=== PATIENT | female | born 1965 | race Two or more races ===

== ENCOUNTER → 2017-10-07 | Outpatient (CLI) | payer OTHER ==
[~2017-10-07] VITALS: Ht 152.4 cm; Wt 64.4 kg
[~2017-10-07] MED LIST: CALCIONATE115 MG/5 M; DIPROLENE AF 0.50 GM TP; FOSAMAX10 MG; FOSAMAX10 MG PO; LOPROX 0.77% TP; MAXITROL EYE DRO5 ML OP; PENLAC6.6 ML TOP; PENLAC6.6 ML TP; PRILOSEC20 MG; PRILOSEC20 MG PO; PRILOSEC40 MG PO; VISTARIL25 MG PO; ZANTAC300 MG PO; [UNRECOGNIZED DRUG - OTHER] TP
== END | disposition home or self-care (01) ==
LOC: PPHC 12:35
DX: Z00.00 Encounter for general adult medical examination without abnormal findings (principal)

== ENCOUNTER → 2017-10-13 06:14 | Outpatient (CLI) | payer OTHER | END | disposition home or self-care (01) | LOC: LAB 06:14 | DX: D64.89 Other specified anemias (principal); R42 Dizziness and giddiness; E78.4 Other hyperlipidemia ==

== ENCOUNTER → 2017-11-03 | Outpatient (CLI) | payer OTHER ==
[~2017-11-03] VITALS: Ht 152.4 cm; Wt 64.4 kg
== END | disposition home or self-care (01) ==
LOC: PPHC 12:44
DX: D72.818 Other decreased white blood cell count (principal); D50.9 Iron deficiency anemia, unspecified

== ENCOUNTER → 2017-11-18 | Emergency (ER) | payer OTHER | END | disposition left against medical advice (07) | LOC: ER 11:18 | DX: Z53.20 Procedure and treatment not carried out because of patient's decision for unspecified reasons (principal) ==

== ENCOUNTER → 2017-11-30 | Outpatient (CLI) | payer OTHER | END | disposition home or self-care (01) | LOC: LAB 12:17 | DX: D72.819 Decreased white blood cell count, unspecified (principal) ==

== ENCOUNTER → 2017-12-07 | Outpatient (CLI) | payer OTHER | END | disposition home or self-care (01) | LOC: PPHC 11:57 | DX: Z00.00 Encounter for general adult medical examination without abnormal findings (principal) ==

== ENCOUNTER 2017-12-18 16:49 | Emergency (ER) | payer OTHER ==
[~2017-12-18] VITALS: Ht 154.9 cm; Wt 64.4 kg
[2017-12-18] MEDS ORDERED: VITAMIN E100 UNI4 (16:59)
== END 2017-12-18 18:03 | disposition home or self-care (01) ==
LOC: ER 16:49
DX: S93.492A Sprain of other ligament of left ankle, initial encounter (principal); X50.1XXA Overexertion from prolonged static or awkward postures, initial encounter; Y93.01 Activity, walking, marching and hiking; Y92.59 Other trade areas as the place of occurrence of the external cause; Y99.8 Other external cause status

== ENCOUNTER → 2018-03-28 | Outpatient (CLI) | payer OTHER ==
[~2018-03-28] MED LIST changes: +VITAMIN E100 UNI4
== END | disposition home or self-care (01) ==
LOC: LAB 08:44
DX: Z11.3 Encounter for screening for infections with a predominantly sexual mode of transmission (principal); D69.6 Thrombocytopenia, unspecified

== ENCOUNTER → 2018-05-06 | Outpatient (CLI) | payer OTHER | END | disposition home or self-care (01) | LOC: MAMO-SONO 07:45 | DX: Z12.31 Encounter for screening mammogram for malignant neoplasm of breast (principal) ==

== ENCOUNTER 2018-11-02 06:11 | Outpatient (CLI) | payer OTHER | END 2018-11-02 06:18 | disposition home or self-care (01) | LOC: LAB 06:11 | DX: Z00.00 Encounter for general adult medical examination without abnormal findings (principal); E78.4 Other hyperlipidemia; R42 Dizziness and giddiness ==

== ENCOUNTER → 2019-05-12 | Outpatient (CLI) | payer OTHER | END | disposition home or self-care (01) | LOC: MAMO-SONO 12:10 | DX: Z12.31 Encounter for screening mammogram for malignant neoplasm of breast (principal); Z87.898 Personal history of other specified conditions; Z12.39 Encounter for other screening for malignant neoplasm of breast ==

== ENCOUNTER → 2019-05-23 | Outpatient (CLI) | payer OTHER | END | disposition home or self-care (01) | LOC: NUCLEAR 12:03 | DX: M81.0 Age-related osteoporosis without current pathological fracture (principal) ==

== ENCOUNTER 2019-08-19 07:10 | Outpatient (CLI) | payer OTHER | END 2019-08-19 07:23 | disposition home or self-care (01) | LOC: LAB 07:10 | DX: E78.49 Other hyperlipidemia (principal); Z00.00 Encounter for general adult medical examination without abnormal findings; E55.9 Vitamin D deficiency, unspecified; R42 Dizziness and giddiness ==

== ENCOUNTER 2019-10-30 06:31 | Outpatient (CLI) | payer OTHER | END 2019-10-30 06:35 | disposition home or self-care (01) | LOC: LAB 06:31 | DX: D50.8 Other iron deficiency anemias (principal); Z00.00 Encounter for general adult medical examination without abnormal findings; Z13.6 Encounter for screening for cardiovascular disorders; Z12.11 Encounter for screening for malignant neoplasm of colon ==

== ENCOUNTER 2019-10-31 12:36 | Outpatient (CLI) | payer OTHER | END 2019-10-31 12:39 | disposition home or self-care (01) | LOC: LAB 12:36 | DX: D50.8 Other iron deficiency anemias (principal); Z00.00 Encounter for general adult medical examination without abnormal findings; Z13.6 Encounter for screening for cardiovascular disorders; Z12.11 Encounter for screening for malignant neoplasm of colon ==

== ENCOUNTER → 2019-11-15 12:41 | Outpatient (CLI) | payer OTHER | END | disposition home or self-care (01) | LOC: LAB 12:41 | DX: R13.19 Other dysphagia (principal); K21.9 Gastro-esophageal reflux disease without esophagitis ==

== ENCOUNTER 2019-12-22 15:52 | Emergency (ER) | payer OTHER ==
[~2019-12-22] VITALS: Ht 154.9 cm; Wt 63.0 kg
[2019-12-22] MEDS ORDERED: MULTI VITAMIN1 EACH (16:06)
== END 2019-12-22 16:51 | disposition home or self-care (01) ==
LOC: ER 15:52
DX: T78.1XXA Other adverse food reactions, not elsewhere classified, initial encounter (principal); R21 Rash and other nonspecific skin eruption

== ENCOUNTER 2020-01-19 09:37 | Outpatient (CLI) | payer OTHER ==
[~2020-01-19 09:37] MED LIST changes: +MULTI VITAMIN1 EACH
== END 2020-01-19 09:41 | disposition home or self-care (01) ==
LOC: LAB 09:37
DX: Z20.828 Contact with and (suspected) exposure to other viral communicable diseases (principal)

== ENCOUNTER 2020-05-10 08:14 | Outpatient (CLI) | payer OTHER | END 2020-05-10 08:22 | disposition home or self-care (01) | LOC: MAMO-SONO 08:14 | PROVIDERS: ATTEND General Practice | DX: Z12.31 Encounter for screening mammogram for malignant neoplasm of breast (principal) ==

== ENCOUNTER 2020-06-04 08:00 | Outpatient (CLI) | payer OTHER | END 2020-06-04 15:00 | disposition home or self-care (01) | LOC: PPH VACUNA 08:00 | DX: Z23 Encounter for immunization (principal) ==

== ENCOUNTER 2020-09-03 11:41 | Outpatient (CLI) | payer OTHER | END 2020-09-03 15:00 | disposition home or self-care (01) | LOC: PPH VACUNA 11:41 | DX: Z23 Encounter for immunization (principal) ==

== ENCOUNTER → 2020-11-18 06:07 | Outpatient (CLI) | payer OTHER | END | disposition home or self-care (01) | LOC: LAB 06:07 | PROVIDERS: ATTEND Specialist | DX: I10 Essential (primary) hypertension (principal); E78.49 Other hyperlipidemia; Z12.11 Encounter for screening for malignant neoplasm of colon; E03.8 Other specified hypothyroidism; E55.9 Vitamin D deficiency, unspecified ==

== ENCOUNTER 2021-05-23 12:27 | Outpatient (CLI) | payer OTHER | END 2021-05-23 12:44 | disposition home or self-care (01) | LOC: MAMO-SONO 12:27 | PROVIDERS: ATTEND Specialist | DX: N64.89 Other specified disorders of breast (principal); Z12.31 Encounter for screening mammogram for malignant neoplasm of breast; Z80.8 Family history of malignant neoplasm of other organs or systems ==

== ENCOUNTER → 2021-05-30 06:11 | Outpatient (CLI) | payer OTHER | END | disposition home or self-care (01) | LOC: LAB 06:11 | PROVIDERS: ATTEND Specialist | DX: E78.49 Other hyperlipidemia (principal) ==

== ENCOUNTER 2021-06-19 08:00 | Outpatient (CLI) | payer OTHER | END 2021-06-19 08:30 | disposition home or self-care (01) | LOC: PPH VACUNA 08:00 | PROVIDERS: ATTEND Emergency Medicine Pediatric Emergency Medicine | DX: Z23 Encounter for immunization (principal) ==

== ENCOUNTER 2021-09-15 11:28 | Emergency (ER) | payer OTHER ==
[~2021-09-15] VITALS: Ht 157.5 cm; Wt 62.1 kg
== END 2021-09-15 15:19 | disposition home or self-care (01) ==
LOC: ER 11:28
DX: B34.9 Viral infection, unspecified (principal); Z20.822 Contact with and (suspected) exposure to COVID-19

== ENCOUNTER → 2021-11-05 06:17 | Outpatient (CLI) | payer OTHER | END | disposition home or self-care (01) | LOC: LAB 06:17 | PROVIDERS: ATTEND Specialist | DX: E78.5 Hyperlipidemia, unspecified (principal); I10 Essential (primary) hypertension; E03.9 Hypothyroidism, unspecified; Z12.11 Encounter for screening for malignant neoplasm of colon; E55.9 Vitamin D deficiency, unspecified ==

== ENCOUNTER 2022-05-15 11:54 | Outpatient (CLI) | payer OTHER | END 2022-05-15 12:01 | disposition home or self-care (01) | LOC: MAMO-SONO 11:54 | PROVIDERS: ATTEND Specialist | DX: Z12.31 Encounter for screening mammogram for malignant neoplasm of breast (principal) ==

== ENCOUNTER 2022-05-18 06:14 | Outpatient (CLI) | payer OTHER | END 2022-05-18 06:15 | disposition home or self-care (01) | LOC: LAB 06:14 | PROVIDERS: ATTEND Specialist | DX: I10 Essential (primary) hypertension (principal); E78.5 Hyperlipidemia, unspecified ==

== ENCOUNTER 2022-06-02 12:30 | Outpatient (CLI) | payer OTHER | END 2022-06-02 12:32 | disposition home or self-care (01) | LOC: NUCLEAR 12:30 | PROVIDERS: ATTEND Specialist | DX: M81.0 Age-related osteoporosis without current pathological fracture (principal); Z91.013 Allergy to seafood ==

== ENCOUNTER 2022-06-03 10:55 | Outpatient (CLI) | payer OTHER | END 2022-06-03 11:00 | disposition home or self-care (01) | LOC: PPH VACUNA 10:55 | PROVIDERS: ATTEND Emergency Medicine Pediatric Emergency Medicine | DX: Z23 Encounter for immunization (principal) ==

== ENCOUNTER 2022-08-04 12:53 | Outpatient (CLI) | payer OTHER | END 2022-08-04 13:04 | disposition home or self-care (01) | LOC: SONOGRAMA 12:53 | PROVIDERS: ATTEND Specialist | DX: E04.2 Nontoxic multinodular goiter (principal) ==

== ENCOUNTER 2022-10-06 06:41 | Outpatient (CLI) | payer OTHER | END 2022-10-06 06:42 | disposition home or self-care (01) | LOC: LAB 06:41 | PROVIDERS: ATTEND Specialist | DX: I10 Essential (primary) hypertension (principal); E78.5 Hyperlipidemia, unspecified; E03.9 Hypothyroidism, unspecified; Z12.11 Encounter for screening for malignant neoplasm of colon; E55.9 Vitamin D deficiency, unspecified ==

== ENCOUNTER 2022-11-14 07:07 | Outpatient (CLI) | payer OTHER | END 2022-11-14 07:15 | disposition home or self-care (01) | LOC: LAB 07:07 | PROVIDERS: ATTEND Internal Medicine Hematology & Oncology | DX: D70.8 Other neutropenia (principal); D50.8 Other iron deficiency anemias; I77.6 Arteritis, unspecified; M05.89 Other rheumatoid arthritis with rheumatoid factor of multiple sites; M32.8 Other forms of systemic lupus erythematosus; D72.819 Decreased white blood cell count, unspecified ==

== ENCOUNTER 2022-11-18 09:48 | Outpatient (CLI) | payer OTHER | END 2022-11-18 09:49 | disposition home or self-care (01) | LOC: NUCLEAR 09:48 | PROVIDERS: ATTEND Internal Medicine Hematology & Oncology | DX: D73.81 Neutropenic splenomegaly (principal); D50.8 Other iron deficiency anemias | CPT/HCPCS: 78215; A9541 ==

== ENCOUNTER → 2022-12-02 10:09 | Outpatient (CLI) | payer OTHER | END | disposition home or self-care (01) | LOC: LAB 10:09 | PROVIDERS: ATTEND Internal Medicine Hematology & Oncology | DX: D70.8 Other neutropenia (principal); D64.9 Anemia, unspecified ==

== ENCOUNTER 2023-04-01 06:36 | Outpatient (CLI) | payer OTHER | END 2023-04-01 06:38 | disposition home or self-care (01) | LOC: LAB 06:36 | PROVIDERS: ATTEND Specialist | DX: I10 Essential (primary) hypertension (principal); E78.5 Hyperlipidemia, unspecified; E03.9 Hypothyroidism, unspecified ==

== ENCOUNTER 2023-05-17 12:35 | Outpatient (CLI) | payer OTHER | END 2023-05-17 12:42 | disposition home or self-care (01) | LOC: MAMO-SONO 12:35 | PROVIDERS: ATTEND Specialist | DX: Z12.31 Encounter for screening mammogram for malignant neoplasm of breast (principal) ==

== ENCOUNTER → 2023-05-20 | Outpatient (CLI) | payer OTHER | END | disposition home or self-care (01) | LOC: PPH VACUNA | PROVIDERS: ATTEND Emergency Medicine Pediatric Emergency Medicine | DX: Z23 Encounter for immunization (principal) ==

== ENCOUNTER 2023-05-29 15:16 | Emergency (ER) | payer OTHER ==
[~2023-05-29] VITALS: Ht 157.5 cm; Wt 65.3 kg
== END 2023-05-29 21:16 | disposition home or self-care (01) ==
LOC: ER 15:16
DX: N64.4 Mastodynia (principal); Z91.013 Allergy to seafood

== ENCOUNTER 2023-08-24 12:18 | Outpatient (CLI) | payer OTHER | END 2023-08-24 12:22 | disposition home or self-care (01) | LOC: RAD 12:18 | PROVIDERS: ATTEND Specialist | DX: M79.672 Pain in left foot (principal); Z91.013 Allergy to seafood ==

== ENCOUNTER 2023-11-01 06:18 | Outpatient (CLI) | payer OTHER ==
[2023-11-01 07:44] LABS: HEMATOCRIT 35.8 % (36.0-45.00); HEMOGLOBIN 11.3 g/dL (12.0-15.00); MEAN CORPUSCULAR HEMOGLOBIN 21.7 pg (27.00-32.0); MEAN CORPUSCULAR HGB CONC 31.5 g/dl (32.0-36.0); PLATELET COUNT 241 K/uL (150-450); RED BLOOD COUNT 5.21 M/uL (4.00-6.00); RED CELL DISTRIBUTION WIDTH 14.7 % (11.5-14.5)
[2023-11-01 07:47] LABS: MEAN CELL VOLUME 68.7 fL (80.00-100.00)
[2023-11-01 07:58] LABS: PH,URINE 6.5 (5.0-8.0); URINE APPEARANCE Clear; URINE BILIRRUBIN Negative (NEGATIVE); URINE BLOOD Negative; URINE COLOR Yellow; URINE GLUCOSE Negative (NEGATIVE); URINE LEUKOCYTE Trace; URINE NITRATE Negative; URINE PROTEIN Negative (NEGATIVE); URINE UROBILINOGEN 0.2 E.U./dl
[2023-11-01 08:02] LABS: URINE EPITHELIAL CELLS 6.3 uL (0.0-38.8); URINE RBC 3.4 uL (0.0-20.8)
[2023-11-01 08:52] LABS: ALBUMIN 3.5 gm/dL (3.4-5.0); BILIRUBIN TOTAL 0.4 mg/dL (0.3-1.2); CALCIUM 8.2 mg/dL (8.5-10.1); CHOL HDL RATIO 3.2 (0-5.0); CREATININE SERUM 0.57 mg/dL (0.55-1.02); GFR 108.56; GLOBULINA 3.3 G/DL (2.4-3.5); POTASSIUM 4.1 mEq/L (3.5-5.1); TOTAL PROTEIN 6.8 gm/dL (6.4-8.2); TSH 1.87 uIU/mL (0.358-3.74)
[2023-11-02 08:09] LABS: ob NEGATIVE (NEGATIVE)
== END 2023-11-01 06:19 | disposition home or self-care (01) ==
LOC: LAB 06:18
PROVIDERS: ATTEND Specialist
DX: I10 Essential (primary) hypertension (principal); E78.5 Hyperlipidemia, unspecified; E55.9 Vitamin D deficiency, unspecified; Z12.11 Encounter for screening for malignant neoplasm of colon

== ENCOUNTER 2023-12-29 07:57 | Outpatient (CLI) | payer OTHER | END 2023-12-29 08:05 | disposition home or self-care (01) | LOC: SONOGRAMA 07:57 | PROVIDERS: ATTEND Podiatrist | DX: M72.2 Plantar fascial fibromatosis (principal) ==

== ENCOUNTER 2024-05-25 12:37 | Outpatient (CLI) | payer OTHER | END 2024-05-25 12:48 | disposition home or self-care (01) | LOC: MAMO-SONO 12:37 | PROVIDERS: ATTEND Obstetrics & Gynecology | DX: N60.11 Diffuse cystic mastopathy of right breast (principal); N60.12 Diffuse cystic mastopathy of left breast; Z12.31 Encounter for screening mammogram for malignant neoplasm of breast ==

== ENCOUNTER 2024-06-08 12:07 | Outpatient (CLI) | payer OTHER | END 2024-06-08 12:13 | disposition home or self-care (01) | LOC: LAB 12:07 | PROVIDERS: ATTEND Preventive Medicine Occupational Medicine | DX: B19.10 Unspecified viral hepatitis B without hepatic coma (principal) ==

== ENCOUNTER 2024-08-02 10:20 | Outpatient (CLI) | payer OTHER | END 2024-08-02 11:00 | disposition home or self-care (01) | LOC: PPH VACUNA 10:20 | PROVIDERS: ATTEND Emergency Medicine Pediatric Emergency Medicine | DX: Z23 Encounter for immunization (principal) ==

== ENCOUNTER 2024-09-28 06:08 | Outpatient (CLI) | payer OTHER ==
[2024-09-28 07:28] LABS: URINE APPEARANCE Clear; URINE BILIRRUBIN Negative (NEGATIVE); URINE BLOOD Negative; URINE COLOR Yellow; URINE GLUCOSE Negative (NEGATIVE); URINE KETONE Negative (NEGATIVE); URINE LEUKOCYTE Negative; URINE NITRATE Negative; URINE PROTEIN Negative (NEGATIVE)
[2024-09-28 07:32] LABS: URINE BACTERIA 42.8 uL (0.0-1933); URINE EPITHELIAL CELLS 3.9 uL (0.0-38.8); URINE RBC 9.5 uL (0.0-20.8); URINE WBC 3.6 uL (0.0-23.2)
[2024-09-28 07:47] LABS: ob NEGATIVE (NEGATIVE)
[2024-09-28 07:48] LABS: HEMATOCRIT 35.9 % (36.0-45.00); MEAN CORPUSCULAR HGB CONC 32.2 g/dl (32.0-36.0); PLATELET COUNT 228 K/uL (150-450); RED BLOOD COUNT 5.26 M/uL (4.00-6.00); RED CELL DISTRIBUTION WIDTH 14.9 % (11.5-14.5)
[2024-09-28 08:44] LABS: ALBUMIN 3.5 gm/dL (3.4-5.0); BILIRUBIN TOTAL 0.31 mg/dL (0.3-1.2); CALCIUM 8.5 mg/dL (8.5-10.1); CREATININE SERUM 0.52 mg/dL (0.55-1.02); GFR 120.28; GLOBULINA 3.3 G/DL (2.4-3.5); POTASSIUM 4.72 mEq/L (3.5-5.1); TOTAL PROTEIN 6.8 gm/dL (6.4-8.2); TSH 2.08 uIU/mL (0.358-3.74)
[2024-09-28 09:22] LABS: MEAN CELL VOLUME 68.3 fL (80.00-100.00)
[2024-09-28 09:31] LABS: HEMOGLOBIN 11.6 g/dL (12.0-15.00)
[2024-09-28 11:18] LABS: VITAMIN D3 25 HYDROXY 22.27 ng/ml (30-120)
== END 2024-09-28 06:15 | disposition home or self-care (01) ==
LOC: LAB 06:08
DX: E03.9 Hypothyroidism, unspecified (principal); D51.3 Other dietary vitamin B12 deficiency anemia; I10 Essential (primary) hypertension; E55.9 Vitamin D deficiency, unspecified; Z12.11 Encounter for screening for malignant neoplasm of colon; E78.5 Hyperlipidemia, unspecified

== ENCOUNTER 2024-10-24 06:17 | Outpatient (CLI) | payer OTHER ==
[2024-10-24 07:23] LABS: ob NEGATIVE (NEGATIVE)
== END 2024-10-24 06:18 | disposition home or self-care (01) ==
LOC: LAB 06:17
PROVIDERS: ATTEND Internal Medicine Hematology & Oncology
DX: K29.40 Chronic atrophic gastritis without bleeding (principal); K90.0 Celiac disease; B82.9 Intestinal parasitism, unspecified

== ENCOUNTER 2024-12-20 06:03 | Outpatient (CLI) | payer OTHER ==
[2024-12-20 06:58] LABS: HEMATOCRIT 36.4 % (36.0-45.00); HEMOGLOBIN 11.6 g/dL (12.0-15.00); MEAN CORPUSCULAR HEMOGLOBIN 22.2 pg (27.00-32.0); MEAN CORPUSCULAR HGB CONC 31.9 g/dl (32.0-36.0); PLATELET COUNT 220 K/uL (150-450); RED BLOOD COUNT 5.23 M/uL (4.00-6.00); RED CELL DISTRIBUTION WIDTH 14.8 % (11.5-14.5)
[2024-12-20 07:05] LABS: MEAN CELL VOLUME 69.6 fL (80.00-100.00)
== END 2024-12-20 06:07 | disposition home or self-care (01) ==
LOC: LAB 06:03
PROVIDERS: ATTEND Internal Medicine Hematology & Oncology
DX: D70.8 Other neutropenia (principal); D53.8 Other specified nutritional anemias

== ENCOUNTER 2025-02-06 12:27 | Outpatient (CLI) | payer OTHER | END 2025-02-06 12:32 | disposition home or self-care (01) | LOC: RAD 12:27 | DX: M20.41 Other hammer toe(s) (acquired), right foot (principal); M20.42 Other hammer toe(s) (acquired), left foot ==

== ENCOUNTER 2025-02-08 12:18 | Outpatient (CLI) | payer OTHER | END 2025-02-08 12:25 | disposition home or self-care (01) | LOC: NUCLEAR 12:18 | PROVIDERS: ATTEND Specialist | DX: M81.0 Age-related osteoporosis without current pathological fracture (principal) ==

== ENCOUNTER → 2025-05-03 06:15 | Outpatient (CLI) | payer OTHER ==
[2025-05-03 07:22] LABS: BASO % 1.3 % (0.1-1.2); EOS # 0.21 (0.04-0.54); EOS % 6.7 % (0.7-7.0); LYMPH # 1.60 (1.18-3.74); LYMPH % 51.0 % (19.3-53.1); MEAN PLATELET VOLUME 10.40 fl (9.4-12.4); MONO # 0.48 (0.24-0.82); NEUT # 0.81 (1.56-6.13); NEUT % 25.7 % (34.0-71.1); RED CELL DISTRIBUTION WIDTH 15.0 % (11.6-14.4)
[2025-05-03 07:23] LABS: URINE APPEARANCE Clear; URINE BILIRRUBIN Negative (NEGATIVE); URINE BLOOD Negative; URINE COLOR Yellow; URINE GLUCOSE Negative (NEGATIVE); URINE KETONE Negative (NEGATIVE); URINE LEUKOCYTE Negative; URINE NITRATE Negative; URINE PROTEIN Negative (NEGATIVE); URINE UROBILINOGEN 1.0 E.U./dl
[2025-05-03 07:24] LABS: URINE BACTERIA 28.8 uL (0.0-1933); URINE RBC 6.5 uL (0.0-20.8)
[2025-05-03 07:26] LABS: MONO % 15.3 % (4.7-12.5)
[2025-05-03 07:36] LABS: URINE CAST 0.00 uL (0.0-1.40); URINE EPITHELIAL CELLS 0.6 uL (0.0-38.8); URINE WBC 0.9 uL (0.0-23.2)
[2025-05-03 08:24] LABS: ALT/SGPT 20.0 U/L (12-78); AST/SGOT 39.0 U/L (15-37); BILIRUBIN TOTAL 0.32 mg/dL (0.3-1.2); BUN CREA RATIO 19.0 (7.0-25.0); CHOL HDL RATIO 2.7 (0-5.0); CREATININE SERUM 0.54 mg/dL (0.55-1.02); GFR 114.77; GLOBULINA 3.2 G/DL (2.4-3.5); GLUCOSE FASTING 72.0 mg/dL (65-100); HDL 67.0 mg/dl (40-60); LDL 106.0 mg/dl (0-130); OSMOLALITY SERUM 281.0 MOSM/KG (275-295); TSH 2.45 uIU/mL (0.358-3.74); VLDL 9.0 (0-39)
== END | disposition home or self-care (01) ==
LOC: LAB 06:15
PROVIDERS: ATTEND Specialist
DX: I10 Essential (primary) hypertension (principal); E03.9 Hypothyroidism, unspecified; E78.5 Hyperlipidemia, unspecified; D70.4 Cyclic neutropenia; D53.8 Other specified nutritional anemias

== ENCOUNTER 2025-05-31 13:22 | Outpatient (CLI) | payer OTHER | END 2025-05-31 13:24 | disposition home or self-care (01) | LOC: MAMO-SONO 13:22 | PROVIDERS: ATTEND Specialist | DX: Z12.31 Encounter for screening mammogram for malignant neoplasm of breast (principal) ==

== ENCOUNTER 2025-07-11 07:30 | Outpatient (CLI) | payer OTHER | END 2025-07-11 07:40 | disposition home or self-care (01) | LOC: PPH VACUNA 07:30 | PROVIDERS: ATTEND Emergency Medicine Pediatric Emergency Medicine | DX: Z23 Encounter for immunization (principal) ==